=== PATIENT | female | born 1995 | race Caucasian/White ===

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

== ENCOUNTER 2017-01-13 01:02 | Emergency (ER) | payer SELFPAY ==
[2017-01-13 01:09] VITALS: BP 124/74
== END 2017-01-13 04:00 | disposition left against medical advice (07) ==
LOC: ED 01:02
DX: Z53.21 Procedure and treatment not carried out due to patient leaving prior to being seen by health care provider (principal)

== ENCOUNTER 2017-03-19 05:20 | Emergency (ER) | payer MEDICAID ==
[2017-03-19 06:50] VITALS: BP 114/75
== END 2017-03-19 06:50 | disposition home or self-care (01) ==
LOC: ED 05:20
DX: T49.95XA Adverse effect of unspecified topical agent, initial encounter (principal); Y92.89 Other specified places as the place of occurrence of the external cause
CPT/HCPCS: J1200; J7510

== ENCOUNTER 2017-12-14 22:26 | Emergency (ER) | payer MEDICAID ==
[~2017-12-14] VITALS: Ht 167.6 cm; Wt 81.0 kg
[2017-12-14 22:51] VITALS: Ht 167.6 cm; Wt 81.0 kg
[2017-12-15 01:29] VITALS: BP 124/84
== END 2017-12-15 01:29 | disposition home or self-care (01) ==
LOC: ED 22:26
DX: S61.411A Laceration without foreign body of right hand, initial encounter (principal); W25.XXXA Contact with sharp glass, initial encounter; Y93.89 Activity, other specified; Y92.89 Other specified places as the place of occurrence of the external cause; Y99.8 Other external cause status
CPT/HCPCS: 90715; J2001

== ENCOUNTER 2018-10-22 17:24 | Emergency (ER) | payer BC ==
[~2018-10-22] VITALS: Ht 167.6 cm; Wt 86.2 kg
[2018-10-22 17:30] VITALS: Ht 167.6 cm; Wt 86.2 kg
[2018-10-22 20:33] VITALS: BP 126/77
== END 2018-10-22 20:33 | disposition home or self-care (01) ==
LOC: ED 17:24
DX: S06.9X9A Unspecified intracranial injury with loss of consciousness of unspecified duration, initial encounter (principal); S01.01XA Laceration without foreign body of scalp, initial encounter; S30.810A Abrasion of lower back and pelvis, initial encounter; S20.412A Abrasion of left back wall of thorax, initial encounter; M25.532 Pain in left wrist; M25.562 Pain in left knee; M25.561 Pain in right knee; M25.512 Pain in left shoulder; V87.8XXA Person injured in other specified noncollision transport accidents involving motor vehicle (traffic), initial encounter; Y93.55 Activity, bike riding; Y92.488 Other paved roadways as the place of occurrence of the external cause; Y99.8 Other external cause status
CPT/HCPCS: 90715

== ENCOUNTER 2018-10-30 15:21 | Emergency (ER) | payer BC ==
[~2018-10-30] VITALS: Ht 167.6 cm; Wt 84.8 kg
[2018-10-30 15:29] VITALS: BP 124/77; Ht 167.6 cm; Wt 84.8 kg
== END 2018-10-30 16:35 | disposition home or self-care (01) ==
LOC: ED 15:21
DX: S01.01XD Laceration without foreign body of scalp, subsequent encounter (principal); V18.2XXD Unspecified pedal cyclist injured in noncollision transport accident in nontraffic accident, subsequent encounter